=== PATIENT | male | born 1940 | race Caucasian/White ===

== ENCOUNTER → 2020-10-31 | Outpatient (CLI) | payer MEDICARE ==
[~2020-10-31] MED LIST: ALLO100T30 PO; AMLO-150 PO; ASCO250T12 PO; ATOR10TA9 PO; CARV12.52 PO; CARV6.2512 PO; DOXA2TAB9 PO; INSU100I13 SQ-INSULIN; INSU100V8 SQ; LISI-170 PO; PANT20TA4 PO; THIA100T67 PO; ZINC220C7 PO
== END | disposition home or self-care (01) ==
LOC: CFH 10:33
PROVIDERS: ATTEND Registered Nurse
DX: I35.8 Other nonrheumatic aortic valve disorders (principal); J96.21 Acute and chronic respiratory failure with hypoxia; I25.10 Atherosclerotic heart disease of native coronary artery without angina pectoris; Z86.16 Personal history of COVID-19
CPT/HCPCS: 71250